=== PATIENT | female | born 1990 | race Caucasian/White ===

== ENCOUNTER 2022-09-20 16:19 | Outpatient (CLI) | payer BC, SELFPAY ==
[2022-09-21 00:04] LABS: Chlamydia DNA Amplified* NOT DETECTED (No Detected); GC DNA Amplified* NOT DETECTED (No Detected)
== END 2022-09-20 16:20 | disposition home or self-care (01) ==
PROVIDERS: Visit Provider Registered Nurse
DX: Z01.419 Encounter for gynecological examination (general) (routine) without abnormal findings (principal); Z11.3 Encounter for screening for infections with a predominantly sexual mode of transmission
CPT/HCPCS: 80061; 86592; 86703; 86803; 87340; 87491; 87591